=== PATIENT | male | born 2000 | race Caucasian/White ===

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

== ENCOUNTER 2018-02-24 14:00 | Emergency (ER) | payer OTHER ==
[~2018-02-24] VITALS: Wt 90.7 kg
[~2018-02-24 14:00] MED LIST changes: +OMEPRAZOLE20 M2 PO; +ZOFRAN ODT4 MG SL
[2018-02-24 14:01] VITALS: BP 122/77
[2018-02-24] MEDS ORDERED: ZYRTEC10 MG PO (14:22)
[2018-02-24] MEDS ORDERED: FLONASE ALLERG9.9 ML NAS (14:22)
[2018-02-24] MEDS ORDERED: PREDNISONE20 M1 PO (14:22)
[2018-02-24] MEDS ORDERED: ZITHROMAX500 MG PO (15:03)
== END 2018-02-24 15:07 | disposition home or self-care (01) ==
LOC: ED 14:00
DX: J02.0 Streptococcal pharyngitis (principal); F17.200 Nicotine dependence, unspecified, uncomplicated; Z88.0 Allergy status to penicillin; Z88.1 Allergy status to other antibiotic agents; Z79.899 Other long term (current) drug therapy

== ENCOUNTER 2018-04-26 16:05 | Emergency (ER) | payer OTHER ==
[~2018-04-26] VITALS: Ht 180.3 cm; Wt 108.9 kg
--- NOTE | ~2018-04-26 | EKG ---
[place], [place] ELECTROCARDIOGRAM REPORT NAME: ZANA ANDERSON UNIT #: [id number] ROOM: DOCTOR: EPIPHANY DRAFT REPORT BIRTHDATE: [birth year] [facility] [place] Test Date: 2018-04-26 Test Time: 16:16:48 Pat Name: ZANA ANDERSON Department: Room: Gender: Lead Material Handler: Emmett Hyatt : 2000 Requested By: KAYLA GARCIA DNP Order Number: [id number] Reading MD: Gianna Petit MD Measurements Intervals [place] Rate: 94 P: 35 [place]: 158 QRS: 28 QRSD: 98 T: 18 QT: 341 QTc: 427 Interpretive Statements Sinus rhythm Compared to ECG 12/11/2017 18:26:12 No significant changes Electronically Signed On 04-27-2018 9:50:15 PST by Gianna Petit MD CM:EKGRPT:ELECTROCARDIOGRAM REPORT 1616 0950 KAYLA GARCIA DNP EPIPHANY DRAFT REPORT KAYLA GARCIA DNP
[~2018-04-26 16:05] MED LIST changes: +FLONASE ALLERG9.9 ML NAS; +PREDNISONE20 M1 PO; +ZITHROMAX500 MG PO; +ZYRTEC10 MG PO
[2018-04-26 16:06] VITALS: BP 143/102
[2018-04-26 16:42] LABS: BASO % 0.4 % (0.0-1.0); EOS # 0.1 10*3/uL (0.0-0.4); EOS % 1.8 % (1.0-4.0); HEMATOCRIT 49.7 % (42.0-52.0); HEMOGLOBIN 16.6 g/dl (14.0-18.0); LYMPH # 1.6 10*3/uL (1.3-4.4); LYMPH % 21.7 % (27.0-41.0); MEAN CELL VOLUME 84.8 fl (80.0-94.0); MEAN CORPUSCULAR HGB 28.3 pg (27.0-31.0); MEAN CORPUSCULAR HGB CONC 33.4 g/dl (33.0-37.0); MEAN PLATELET VOLUME 10.5 fl (9.6-12.3); MONO # 0.5 10*3/uL (0.1-1.0); MONO % 6.8 % (3.0-9.0); NEUT # 5.1 10*3/uL (2.3-7.9); PLATELET COUNT AUTOMATED 223 10*3/uL (130-400); RED BLOOD COUNT 5.86 10*6/uL (4.50-5.90); RED CELL DISTRI WIDTH 12.8 % (0-14.5); WHITE BLOOD COUNT 7.4 10*3/uL (4.8-10.8)
[2018-04-26 16:57] LABS: ACT PARTIAL THROMBO TIME 22.6 SECONDS (20.8-31.5)
[2018-04-26 17:05] LABS: ALBUMIN 4.3 gm/dl (3.1-4.5); ALKALINE PHOSPHATASE 83 U/L (45-117); BUN 12 mg/dl (7-24); CHLORIDE 101 mmol/L (98-107); CREATININE 1.02 mg/dL (0.70-1.30); LIPASE 93 U/L (73-393); POTASSIUM 3.9 mmol/L (3.5-5.1); SGOT/AST 35 IU/L (3-35); SGPT/ALT 59 U/L (12-78); SODIUM 136 mmol/L (136-145); TOTAL PROTEIN 8.2 gm/dL (6.4-8.2)
[2018-04-26 17:14] LABS: TROPONIN I < 0.015 ng/ml (<0.045)
[2018-04-26 17:43] LABS: BILIRUBIN NEGATIVE (NEGATIVE); BLOOD NEGATIVE (NEGATIVE); COLOR YELLOW (YELLOW); GLUCOSE NEGATIVE (NEGATIVE); KETONE NEGATIVE (NEGATIVE); LEUKO ESTERASE NEGATIVE (NEGATIVE); NITRITE NEGATIVE (NEGATIVE); UROBILINOGEN 0.2 E.U./dl (0.2-1.0)
[2018-04-26 17:51] LABS: CLARITY CLOUDY (CLEAR)
== END 2018-04-26 17:37 | disposition home or self-care (01) ==
LOC: ED 16:05
PROVIDERS: Nurse Practitioner Family
DX: R07.89 Other chest pain (principal); R42 Dizziness and giddiness; R11.2 Nausea with vomiting, unspecified; F17.200 Nicotine dependence, unspecified, uncomplicated; Z88.0 Allergy status to penicillin; Z88.1 Allergy status to other antibiotic agents

== ENCOUNTER 2019-02-24 21:53 | Emergency (ER) | payer SELFPAY ==
[~2019-02-24] VITALS: Ht 180.3 cm; Wt 113.4 kg
[2019-02-24 21:56] VITALS: BP 127/84
[2019-02-24 23:54] LABS: BILIRUBIN 1+ (NEGATIVE); BLOOD NEGATIVE (NEGATIVE); CLARITY CLEAR (CLEAR); COLOR YELLOW (YELLOW); GLUCOSE NEGATIVE (NEGATIVE); KETONE NEGATIVE (NEGATIVE); LEUKO ESTERASE NEGATIVE (NEGATIVE); NITRITE NEGATIVE (NEGATIVE); SPECIFIC GRAVITY >= 1.030 (1.005-1.030)
[2019-02-24 23:59] LABS: BACTERIA 2+; EPITHELIAL CELLS 0-2; RBC 0-2 rbc/hpf (0-2)
[2019-02-25] MEDS ORDERED: ZOFRAN4 MG PO (00:13)
[2019-02-25] MEDS ORDERED: SEPTDS PO (00:13)
== END 2019-02-25 00:25 | disposition home or self-care (01) ==
LOC: ED 21:53
PROVIDERS: Nurse Practitioner Family
DX: J10.1 Influenza due to other identified influenza virus with other respiratory manifestations (principal); H66.93 Otitis media, unspecified, bilateral; F17.200 Nicotine dependence, unspecified, uncomplicated; Z88.0 Allergy status to penicillin; Z88.1 Allergy status to other antibiotic agents; Z79.899 Other long term (current) drug therapy

== ENCOUNTER 2019-06-12 14:14 | Emergency (ER) | payer OTHER ==
[~2019-06-12] VITALS: Ht 182.8 cm; Wt 113.4 kg
[~2019-06-12 14:14] MED LIST changes: +ZOFRAN4 MG PO
[2019-06-12 14:18] VITALS: BP 137/90
[2019-06-12] MEDS ORDERED: DOXYCYCLINE100 M3 PO (14:46)
[2019-06-12] MEDS ORDERED: NYSTATIN CREAM15 GM T (14:46)
== END 2019-06-12 14:59 | disposition home or self-care (01) ==
LOC: ED 14:14
DX: B35.9 Dermatophytosis, unspecified (principal); F41.9 Anxiety disorder, unspecified; Z88.8 Allergy status to other drugs, medicaments and biological substances; Z88.0 Allergy status to penicillin; Z88.2 Allergy status to sulfonamides

== ENCOUNTER 2021-06-25 14:26 | Emergency (ER) | payer OTHER ==
[~2021-06-25] VITALS: Wt 142.9 kg
[~2021-06-25 14:26] MED LIST changes: +DOXYCYCLINE100 M3 PO; +NYSTATIN CREAM15 GM T
[2021-06-25 14:32] VITALS: BP 150/95
[2021-06-25] MEDS ORDERED: PREDNISONE50 MG PO (14:47)
[2021-06-25] MEDS ORDERED: CYCLOBENZAPRINE10 MG PO (14:47)
== END 2021-06-25 14:54 | disposition home or self-care (01) ==
LOC: ED 14:26
DX: S39.012A Strain of muscle, fascia and tendon of lower back, initial encounter (principal); Z88.0 Allergy status to penicillin; Z88.1 Allergy status to other antibiotic agents; W20.8XXA Other cause of strike by thrown, projected or falling object, initial encounter; Y93.89 Activity, other specified; Y92.89 Other specified places as the place of occurrence of the external cause; Y99.8 Other external cause status

== ENCOUNTER 2021-07-11 11:49 | Emergency (ER) | payer OTHER ==
[~2021-07-11] VITALS: Wt 138.3 kg
[~2021-07-11 11:49] MED LIST changes: +CYCLOBENZAPRINE10 MG PO; +PREDNISONE50 MG PO
[2021-07-11 11:59] VITALS: BP 154/115
[2021-07-11 12:13] LABS: BILIRUBIN Negative (Negative); BLOOD 2+ (Negative); CLARITY Clear (Clear); COLOR Yellow (Yellow); GLUCOSE Negative (Negative); KETONE Negative (Negative); LEUKO ESTERASE Trace (Negative); NITRITE Negative (Negative); SPECIFIC GRAVITY 1.015 (1.001-1.030)
[2021-07-11 12:33] LABS: BACTERIA TRACE; RBC TNTC rbc/hpf (0-2)
[2021-07-11] MEDS ORDERED: FLOMAX0.4 MG PO (12:44)
[2021-07-11] MEDS ORDERED: NAPROXEN250 MG PO (12:44)
[2021-07-11] MEDS ORDERED: TYLENOL325 M1 PO (12:44)
[2021-07-11] MEDS ORDERED: REGLAN10 M1 PO (12:44)
== END 2021-07-11 12:48 | disposition home or self-care (01) ==
LOC: ED 11:49
PROVIDERS: Emergency Medicine
DX: N23 Unspecified renal colic (principal); Z88.1 Allergy status to other antibiotic agents; Z88.0 Allergy status to penicillin

== ENCOUNTER 2022-03-31 21:46 | Emergency (ER) | payer OTHER ==
[~2022-03-31] VITALS: Ht 182.8 cm; Wt 108.9 kg
[~2022-03-31 21:46] MED LIST changes: +FLOMAX0.4 MG PO; +NAPROXEN250 MG PO; +REGLAN10 M1 PO; +TYLENOL325 M1 PO
[2022-03-31 21:58] VITALS: BP 158/86
[2022-03-31] MEDS ORDERED: CLINDAMYCIN HC300 MG PO (22:49)
== END 2022-03-31 22:45 | disposition home or self-care (01) ==
LOC: ED 21:46
DX: K08.89 Other specified disorders of teeth and supporting structures (principal); J02.9 Acute pharyngitis, unspecified; Z88.1 Allergy status to other antibiotic agents; Z88.0 Allergy status to penicillin; Z88.2 Allergy status to sulfonamides; Z88.8 Allergy status to other drugs, medicaments and biological substances

== ENCOUNTER 2022-04-15 08:37 | Emergency (ER) | payer OTHER ==
[~2022-04-15] VITALS: Ht 182.8 cm; Wt 136.1 kg
[~2022-04-15 08:37] MED LIST changes: +CLINDAMYCIN HC300 MG PO
[2022-04-15 08:41] VITALS: BP 155/90
[2022-04-15] MEDS ORDERED: ONDANSETRON4 MG SL (08:59)
== END 2022-04-15 09:00 | disposition home or self-care (01) ==
LOC: ED 08:37
DX: B34.9 Viral infection, unspecified (principal); Z88.0 Allergy status to penicillin; Z88.1 Allergy status to other antibiotic agents

== ENCOUNTER 2022-07-12 20:53 | Emergency (ER) | payer OTHER ==
[~2022-07-12] VITALS: Ht 180.3 cm; Wt 133.8 kg
[~2022-07-12 20:53] MED LIST changes: +ONDANSETRON4 MG SL
[2022-07-12 21:20] VITALS: BP 137/92
[2022-07-12] MEDS ORDERED: DOCUSATE SODIU100 M3 PO (21:49)
[2022-07-12] MEDS ORDERED: ANUSOL HC30 GM PO (21:49)
== END 2022-07-12 21:56 | disposition home or self-care (01) ==
LOC: ED 20:53
DX: K64.9 Unspecified hemorrhoids (principal); F41.9 Anxiety disorder, unspecified; F90.9 Attention-deficit hyperactivity disorder, unspecified type; Z88.1 Allergy status to other antibiotic agents; Z88.0 Allergy status to penicillin; Z88.2 Allergy status to sulfonamides; Z88.8 Allergy status to other drugs, medicaments and biological substances

== ENCOUNTER 2022-09-27 18:48 | Emergency (ER) | payer OTHER ==
[~2022-09-27 18:48] MED LIST changes: +ANUSOL HC30 GM PO; +DOCUSATE SODIU100 M3 PO
== END 2022-09-27 23:39 | disposition left against medical advice (07) ==
LOC: ED 18:48
DX: M79.672 Pain in left foot (principal); M79.675 Pain in left toe(s); Z53.21 Procedure and treatment not carried out due to patient leaving prior to being seen by health care provider

== ENCOUNTER 2022-10-04 09:41 | Emergency (ER) | payer OTHER ==
[~2022-10-04] VITALS: Ht 180.3 cm; Wt 122.5 kg
[2022-10-04 09:45] VITALS: BP 109/78
[2022-10-04] MEDS ORDERED: PREDNISONE50 MG PO (11:52)
== END 2022-10-04 11:58 | disposition home or self-care (01) ==
LOC: ED 09:41
DX: S46.811A Strain of other muscles, fascia and tendons at shoulder and upper arm level, right arm, initial encounter (principal); F90.9 Attention-deficit hyperactivity disorder, unspecified type; F41.9 Anxiety disorder, unspecified; Z88.1 Allergy status to other antibiotic agents; Z88.0 Allergy status to penicillin; Z88.2 Allergy status to sulfonamides; Z88.8 Allergy status to other drugs, medicaments and biological substances; X50.0XXA Overexertion from strenuous movement or load, initial encounter; Y93.89 Activity, other specified; Y92.89 Other specified places as the place of occurrence of the external cause; Y99.0 Civilian activity done for income or pay

== ENCOUNTER 2022-10-21 14:40 | Emergency (ER) | payer OTHER ==
[2022-10-21 14:49] VITALS: BP 145/88
[2022-10-21] MEDS ORDERED: CLINDAMYCIN HC300 MG PO (15:12)
[2022-10-21] MEDS ORDERED: TERBINAFINE250 MG PO (15:12)
[2022-10-21] MEDS ORDERED: Nizoral 2%15 GM T (15:12)
== END 2022-10-21 15:29 | disposition home or self-care (01) ==
LOC: ED 14:40
DX: L03.115 Cellulitis of right lower limb (principal); B35.3 Tinea pedis; Z88.1 Allergy status to other antibiotic agents; Z88.0 Allergy status to penicillin; Z88.2 Allergy status to sulfonamides; Z79.899 Other long term (current) drug therapy; Z79.2 Long term (current) use of antibiotics

== ENCOUNTER 2023-07-01 11:34 | Emergency (ER) | payer OTHER ==
[~2023-07-01] VITALS: Ht 182.8 cm; Wt 129.3 kg
[~2023-07-01 11:34] MED LIST changes: +Nizoral 2%15 GM T; +TERBINAFINE250 MG PO
[2023-07-01 12:01] VITALS: BP 134/63
[2023-07-01] MEDS ORDERED: CLINDAMYCIN HC300 MG PO (12:09)
== END 2023-07-01 12:30 | disposition home or self-care (01) ==
LOC: ED 11:34
DX: K08.89 Other specified disorders of teeth and supporting structures (principal); F41.9 Anxiety disorder, unspecified; F90.9 Attention-deficit hyperactivity disorder, unspecified type; Z88.1 Allergy status to other antibiotic agents; Z88.0 Allergy status to penicillin; Z88.2 Allergy status to sulfonamides; Z88.8 Allergy status to other drugs, medicaments and biological substances

== ENCOUNTER 2023-09-07 11:22 | Emergency (ER) | payer OTHER ==
[~2023-09-07] VITALS: Ht 182.8 cm; Wt 136.1 kg
[2023-09-07 11:27] VITALS: BP 138/83
[2023-09-07] MEDS ORDERED: Ondansetron4 MG PO (11:48)
== END 2023-09-07 11:56 | disposition home or self-care (01) ==
LOC: ED 11:22
DX: R11.2 Nausea with vomiting, unspecified (principal); R10.9 Unspecified abdominal pain; F90.9 Attention-deficit hyperactivity disorder, unspecified type; F41.9 Anxiety disorder, unspecified; Z88.0 Allergy status to penicillin; Z88.1 Allergy status to other antibiotic agents; Z88.2 Allergy status to sulfonamides; Z88.8 Allergy status to other drugs, medicaments and biological substances

== ENCOUNTER 2023-10-04 09:36 | Emergency (ER) | payer OTHER ==
[~2023-10-04] VITALS: Ht 182.8 cm; Wt 127.0 kg
[~2023-10-04 09:36] MED LIST changes: +Ondansetron4 MG PO
[2023-10-04] MEDS ORDERED: Lidocaine Hydrochloride 30 ML VIAL IJ ONE (09:40)
[2023-10-04 09:46] VITALS: BP 144/95
[2023-10-04] MEDS ORDERED: CLINDAMYCIN HC300 MG PO (09:50)
== END 2023-10-04 10:44 | disposition home or self-care (01) ==
LOC: ED 09:36
DX: K04.7 Periapical abscess without sinus (principal); K02.9 Dental caries, unspecified; F90.9 Attention-deficit hyperactivity disorder, unspecified type; F41.9 Anxiety disorder, unspecified; F17.290 Nicotine dependence, other tobacco product, uncomplicated; Z88.1 Allergy status to other antibiotic agents; Z88.0 Allergy status to penicillin; Z88.2 Allergy status to sulfonamides; Z88.8 Allergy status to other drugs, medicaments and biological substances

== ENCOUNTER 2023-11-01 16:04 | Emergency (ER) | payer OTHER ==
[~2023-11-01] VITALS: Wt 136.1 kg
[2023-11-01 16:13] VITALS: BP 147/80
== END 2023-11-01 17:42 | disposition home or self-care (01) ==
LOC: ED 16:04
DX: J06.9 Acute upper respiratory infection, unspecified (principal); Z20.822 Contact with and (suspected) exposure to COVID-19; Z88.1 Allergy status to other antibiotic agents; Z88.0 Allergy status to penicillin; Z88.2 Allergy status to sulfonamides

== ENCOUNTER 2023-12-06 11:19 | Emergency (ER) | payer SELFPAY ==
[~2023-12-06] VITALS: Wt 136.1 kg
[2023-12-06 11:46] VITALS: BP 130/72
[2023-12-06] MEDS ORDERED: CLINDAMYCIN HC300 MG PO (11:46)
[2023-12-06] MEDS ORDERED: CLINDAMYCIN HCL 300 MG CAPSULE PO ONE (11:50)
== END 2023-12-06 12:00 | disposition home or self-care (01) ==
LOC: ED 11:19
DX: K04.7 Periapical abscess without sinus (principal); F41.9 Anxiety disorder, unspecified; F17.200 Nicotine dependence, unspecified, uncomplicated; Z88.1 Allergy status to other antibiotic agents; Z88.0 Allergy status to penicillin; Z88.2 Allergy status to sulfonamides

== ENCOUNTER 2024-05-12 02:42 | Emergency (ER) | payer SELFPAY ==
[~2024-05-12] VITALS: Ht 182.8 cm; Wt 136.1 kg
[2024-05-12 02:55] VITALS: BP 150/105
[2024-05-12] MEDS ORDERED: CLINDAMYCIN HCL 300 MG CAPSULE PO ONE (03:20)
[2024-05-12] MEDS ORDERED: traMADol Hydrochloride 50 MG TAB PO ONE (03:20)
[2024-05-12] MEDS ORDERED: MELOXICAM15 MG PO (03:24)
== END 2024-05-12 03:27 | disposition home or self-care (01) ==
LOC: ED 02:42
DX: K04.7 Periapical abscess without sinus (principal); K02.9 Dental caries, unspecified; R22.0 Localized swelling, mass and lump, head; F90.9 Attention-deficit hyperactivity disorder, unspecified type; F41.9 Anxiety disorder, unspecified; Z88.1 Allergy status to other antibiotic agents; Z88.0 Allergy status to penicillin; Z88.2 Allergy status to sulfonamides; Z88.8 Allergy status to other drugs, medicaments and biological substances

== ENCOUNTER 2024-06-30 12:33 | Emergency (ER) | payer SELFPAY ==
[~2024-06-30] VITALS: Ht 182.8 cm; Wt 136.1 kg
[~2024-06-30 12:33] MED LIST changes: +MELOXICAM15 MG PO
[2024-06-30 12:41] VITALS: BP 136/77
[2024-06-30] MEDS ORDERED: Acetaminophen/Oxycodone 5 MG/325 MG TABLET PO ONE (12:50)
[2024-06-30] MEDS ORDERED: CLINDAMYCIN HCL 300 MG CAPSULE PO ONE (12:50)
[2024-06-30] MEDS ORDERED: MELOXICAM15 MG PO (12:52)
[2024-06-30] MEDS ORDERED: CLINDAMYCIN HC300 MG PO (12:52)
== END 2024-06-30 13:03 | disposition home or self-care (01) ==
LOC: ED 12:33
DX: K04.7 Periapical abscess without sinus (principal); F17.290 Nicotine dependence, other tobacco product, uncomplicated; Z88.1 Allergy status to other antibiotic agents; Z88.0 Allergy status to penicillin; Z88.2 Allergy status to sulfonamides

== ENCOUNTER 2024-07-30 10:14 | Emergency (ER) | payer SELFPAY ==
[~2024-07-30] VITALS: Ht 182.8 cm; Wt 136.1 kg
[2024-07-30] MEDS ORDERED: CLINDAMYCIN HCL 300 MG CAPSULE PO ONE (10:30)
== END 2024-07-30 10:37 | disposition home or self-care (01) ==
LOC: ED 10:14
DX: K04.7 Periapical abscess without sinus (principal); K02.9 Dental caries, unspecified; F41.9 Anxiety disorder, unspecified; Z79.899 Other long term (current) drug therapy; Z88.0 Allergy status to penicillin; Z88.1 Allergy status to other antibiotic agents; Z88.2 Allergy status to sulfonamides; Z88.8 Allergy status to other drugs, medicaments and biological substances

== ENCOUNTER 2024-09-05 10:51 | Inpatient (IN) | payer SELFPAY ==
[~2024-09-05] VITALS: Ht 182.8 cm; Wt 117.0 kg
[2024-09-05 11:03] VITALS: BP 142/100
[2024-09-05] MEDS ORDERED: Ondansetron Hydrochloride 4 MG/2 ML VIAL IV ONE (11:20)
[2024-09-05] MEDS ORDERED: SODIUM CHLORIDE 0.9% 1,000 ML IV ONE ×3 (11:20→14:30)
[2024-09-05 11:39] LABS: BASO # 0.1 10*3/uL (0.0-0.1); BASO % 0.8 % (0.0-1.0); EOS # 0.3 10*3/uL (0.0-0.4); EOS % 2.0 % (1.0-4.0); MEAN CELL VOLUME 84.0 fl (80.0-94.0); MEAN CORPUSCULAR HGB 29.1 pg (27.0-31.0); MEAN PLATELET VOLUME 11.1 fl (9.6-12.3); MONO # 1.0 10*3/uL (0.1-1.0); MONO % 6.3 % (3.0-9.0); NEUT # 12.3 10*3/uL (2.3-7.9); NEUT % 74.8 % (47.0-73.0); NUCLEATED RED BLOOD CELL 0.0 % (0.0-0.0); NUCLEATED RED BLOOD CELL 0.0 10*3/uL (0.0-0.0); PLATELET COUNT AUTOMATED 261 10*3/uL (130-400); RED CELL DISTRI WIDTH 14.4 % (0-14.5)
[2024-09-05 12:01] LABS: BUN 10 mg/dl (9-23); SGPT/ALT 26 U/L (5-49)
[2024-09-05] MEDS ORDERED: ZESTRIL10 MG PO (12:34)
[2024-09-05] MEDS ORDERED: LOPRESSOR50 M1 PO (12:34)
[2024-09-05] MEDS ORDERED: OMEPRAZOLE40 MG PO (12:35)
[2024-09-05] MEDS ORDERED: LASIX40 MG PO (12:35)
[2024-09-05] MEDS ORDERED: OXYBUTYNIN5 MG PO (12:35)
[2024-09-05] MEDS ORDERED: IMDUR SA30 MG PO (12:36)
[2024-09-05] MEDS ORDERED: ACETAMINOPHEN500 M4 PO (12:36)
[2024-09-05] MEDS ORDERED: ASPIRIN ADULT L81 M1 PO (12:37)
[2024-09-05] MEDS ORDERED: ADVIL PM CAPLE1 EACH PO (12:37)
[2024-09-05] MEDS ORDERED: NEURONTIN100 MG PO (12:37)
[2024-09-05 12:41] LABS: VENOUS BLOOD GAS O2 SAT 89.2 % (60.0-85.0)
[2024-09-05 12:50] LABS: BILIRUBIN Negative (Negative); BLOOD Negative (Negative); CLARITY Clear (Clear); COLOR Yellow (Yellow); KETONE 4+ (Negative); LEUKO ESTERASE Negative (Negative); NITRITE Negative (Negative); PH 5.0 (4.5-8.0); SPECIFIC GRAVITY >= 1.030 (1.001-1.030); UROBILINOGEN 0.2 E.U./dl (0.0-1.0)
[2024-09-05] MEDS ORDERED: INSULIN REGULAR IN 0.9 % NACL 100 ML IV SCH ×2 (12:50→14:05)
[2024-09-05 13:18] LABS: BACTERIA 3+; EPITHELIAL CELLS 0-2; MUCOUS 1+; RBC 0-2 rbc/hpf (0-2); WBC 0-2 wbc/hpf (0-5)
[2024-09-05 13:29] VITALS: BP 169/98
[2024-09-05] MEDS ORDERED: BISACODYL 5 MG TAB PO PRN (13:35)
[2024-09-05] MEDS ORDERED: BISACODYL 10 MG SUPP R PRN (13:35)
[2024-09-05] MEDS ORDERED: ACETAMINOPHEN 325 MG TAB PO PRN (13:35)
[2024-09-05] MEDS ORDERED: ACETAMINOPHEN 650 MG SUPP R PRN (13:35)
[2024-09-05] MEDS ORDERED: Ondansetron Hydrochloride 4 MG/2 ML VIAL IV PRN (13:35)
[2024-09-05] MEDS ORDERED: POTASSIUM CHLORIDE 20 MEQ/100 ML BAG IV PRN (13:40)
[2024-09-05] MEDS ORDERED: POTASSIUM CHLORIDE 20 MEQ TAB PO PRN (13:40)
[2024-09-05 14:00] VITALS: BP 145/99
[2024-09-05 14:52] LABS: BUN 9 mg/dl (9-23)
[2024-09-05] MEDS ORDERED: Acetaminophen/Hydrocodone 5 MG/325 MG TABLET PO PRN (15:50)
[2024-09-05 16:00] VITALS: BP 117/70
[2024-09-05] MEDS ORDERED: Bacitracin Zinc 14 GM TUBE T SCH (18:00)
[2024-09-05 18:21] LABS: BUN 8 mg/dl (9-23)
[2024-09-05] MEDS ORDERED: DEXTROSE 5% SALINE 0.45% 1,000 ML IV SCH (19:10)
[2024-09-05 20:00] VITALS: BP 115/76
[2024-09-05 22:16] LABS: BUN 7 mg/dl (9-23)
[2024-09-05 23:56] VITALS: BP 126/91
[2024-09-06 02:36] LABS: BUN 7 mg/dl (9-23)
[2024-09-06 03:57] VITALS: BP 127/84
[2024-09-06 06:22] LABS: BUN 6 mg/dl (9-23)
[2024-09-06 06:30] LABS: BASO # 0.0 10*3/uL (0.0-0.1); BASO % 0.4 % (0.0-1.0); EOS # 0.2 10*3/uL (0.0-0.4); EOS % 2.3 % (1.0-4.0); MEAN CELL VOLUME 83.0 fl (80.0-94.0); MEAN CORPUSCULAR HGB 29.2 pg (27.0-31.0); MEAN PLATELET VOLUME 11.4 fl (9.6-12.3); MONO # 0.7 10*3/uL (0.1-1.0); MONO % 8.9 % (3.0-9.0); NEUT # 5.7 10*3/uL (2.3-7.9); NEUT % 74.0 % (47.0-73.0); NUCLEATED RED BLOOD CELL 0.0 % (0.0-0.0); NUCLEATED RED BLOOD CELL 0.0 10*3/uL (0.0-0.0); RED CELL DISTRI WIDTH 13.0 % (0-14.5)
[2024-09-06 06:31] LABS: PLATELET COUNT AUTOMATED 185 10*3/uL (130-400)
[2024-09-06] MEDS ORDERED: POTASSIUM CHLORIDE 20 MEQ TAB PO ONE (06:50)
[2024-09-06] MEDS ORDERED: Insulin Glargine, Recombinan 1 UNIT/0.01 ML SC ONE (06:50)
[2024-09-06 07:01] LABS: VITAMIN D, 25-HYDROXY 36.8 ng/mL (30-100)
[2024-09-06 07:54] LABS: BUN 6 mg/dl (9-23); FREE T4 1.26 ng/dl (0.89-1.76); LDL CHOLESTEROL 74 mg/dL (9-159); SGPT/ALT 16 U/L (5-49)
[2024-09-06 08:00] VITALS: BP 135/88
[2024-09-06] MEDS ORDERED: DEXTROSE 50% 25 GM/50 ML VIAL IV PRN (08:55)
[2024-09-06] MEDS ORDERED: Insulin Glargine, Recombinan 1 UNIT/0.01 ML SC SCH (08:55)
[2024-09-06] MEDS ORDERED: HYDROCORTISONE 1% 28 GM TUBE T PRN (10:40)
[2024-09-06] MEDS ORDERED: NOVOLOG FL100 UNIT/2 SC ×2 (10:48→11:52)
[2024-09-06] MEDS ORDERED: LANTUS SOL100 UNIT/1 SC ×2 (10:48→11:52)
[2024-09-06] MEDS ORDERED: INSULIN LISPRO 1 UNIT/0.01 ML SQ SCH (11:30)
[2024-09-06] MEDS ORDERED: INSULIN REGULAR, HUMAN 1 UNIT/0.01 ML ONE (12:28)
[2024-09-07] MEDS ORDERED: MUPIROCIN 15 GM TUBE T SCH (10:00)
== END 2024-09-06 13:53 | disposition home or self-care (01) | DRG 638 ==
LOC: ED 10:51 → ICCU 12:54 → EDHOLD 12:54 → ICCU 13:08
PROVIDERS: Nurse Practitioner Family; ADMIT Internal Medicine; ATTEND Internal Medicine
DX: E10.10 Type 1 diabetes mellitus with ketoacidosis without coma (principal); R65.10 Systemic inflammatory response syndrome (SIRS) of non-infectious origin without acute organ dysfunction; K76.0 Fatty (change of) liver, not elsewhere classified; F90.9 Attention-deficit hyperactivity disorder, unspecified type; E86.0 Dehydration; D72.828 Other elevated white blood cell count; F17.210 Nicotine dependence, cigarettes, uncomplicated; F41.9 Anxiety disorder, unspecified; Z88.0 Allergy status to penicillin; Z88.8 Allergy status to other drugs, medicaments and biological substances; Z91.09 Other allergy status, other than to drugs and biological substances; Z79.899 Other long term (current) drug therapy; Z79.01 Long term (current) use of anticoagulants; Z79.2 Long term (current) use of antibiotics; Z87.440 Personal history of urinary (tract) infections; Z83.3 Family history of diabetes mellitus; Z82.49 Family history of ischemic heart disease and other diseases of the circulatory system; Q78.8 Other specified osteochondrodysplasias

== ENCOUNTER 2024-09-08 10:03 | Inpatient (IN) | payer SELFPAY ==
[~2024-09-08] VITALS: Ht 182.8 cm; Wt 117.0 kg
[~2024-09-08 10:03] MED LIST changes: +ACETAMINOPHEN500 M4 PO; +ADVIL PM CAPLE1 EACH PO; +ASPIRIN ADULT L81 M1 PO; +IMDUR SA30 MG PO; +LANTUS SOL100 UNIT/1 SC; +LASIX40 MG PO; +LOPRESSOR50 M1 PO; +NEURONTIN100 MG PO; +NOVOLOG FL100 UNIT/2 SC; +OMEPRAZOLE40 MG PO; +OXYBUTYNIN5 MG PO; +ZESTRIL10 MG PO
[2024-09-08 10:19] VITALS: BP 154/96
[2024-09-08] MEDS ORDERED: SODIUM CHLORIDE 0.9% 1,000 ML IV ONE ×2 (10:40→14:15)
[2024-09-08] MEDS ORDERED: Ondansetron Hydrochloride 4 MG/2 ML VIAL IV ONE (10:40)
[2024-09-08 10:55] LABS: BASO # 0.1 10*3/uL (0.0-0.1); BASO % 0.7 % (0.0-1.0); EOS # 0.1 10*3/uL (0.0-0.4); EOS % 0.9 % (1.0-4.0); MEAN CELL VOLUME 86.2 fl (80.0-94.0); MEAN CORPUSCULAR HGB 28.8 pg (27.0-31.0); MEAN PLATELET VOLUME 10.6 fl (9.6-12.3); MONO # 1.0 10*3/uL (0.1-1.0); MONO % 9.3 % (3.0-9.0); NEUT # 8.2 10*3/uL (2.3-7.9); NEUT % 77.5 % (47.0-73.0); NUCLEATED RED BLOOD CELL 0.0 % (0.0-0.0); NUCLEATED RED BLOOD CELL 0.0 10*3/uL (0.0-0.0); PLATELET COUNT AUTOMATED 203 10*3/uL (130-400); RED CELL DISTRI WIDTH 13.6 % (0-14.5)
[2024-09-08 11:16] LABS: BUN 12 mg/dl (9-23); SGPT/ALT 13 U/L (5-49)
[2024-09-08 11:46] LABS: BILIRUBIN Negative (Negative); BLOOD 1+ (Negative); CLARITY Clear (Clear); COLOR Yellow (Yellow); KETONE 4+ (Negative); LEUKO ESTERASE Negative (Negative); NITRITE Negative (Negative); PH 5.5 (4.5-8.0); SPECIFIC GRAVITY 1.025 (1.001-1.030); UROBILINOGEN 1.0 E.U./dl (0.0-1.0)
[2024-09-08 12:00] VITALS: BP 132/91
[2024-09-08 12:02] LABS: FINE GRANULAR CAST 21-30
[2024-09-08 12:05] LABS: BACTERIA 2+; WBC 0-2 wbc/hpf (0-5)
[2024-09-08] MEDS ORDERED: INSULIN REGULAR, HUMAN 1 UNIT/0.01 ML IV ONE (12:05)
[2024-09-08] MEDS ORDERED: ACETAMINOPHEN 650 MG SUPP R PRN (14:10)
[2024-09-08] MEDS ORDERED: Ondansetron Hydrochloride 4 MG/2 ML VIAL IV PRN (14:10)
[2024-09-08] MEDS ORDERED: ACETAMINOPHEN 325 MG TAB PO PRN (14:10)
[2024-09-08] MEDS ORDERED: POTASSIUM CHLORIDE 20 MEQ TAB PO ONE (14:15)
[2024-09-08 14:20] VITALS: BP 155/98
[2024-09-08 14:31] LABS: BUN 10 mg/dl (9-23)
[2024-09-08] MEDS ORDERED: DEXTROSE 5% SALINE 0.9% 1,000 ML IV ONE (15:00)
[2024-09-08] MEDS ORDERED: INSULIN REGULAR IN 0.9 % NACL 100 ML IV SCH (15:00)
[2024-09-08] MEDS ORDERED: POTASSIUM CHLORIDE 20 MEQ TAB PO PRN (15:00)
[2024-09-08] MEDS ORDERED: POTASSIUM CHLORIDE 20 MEQ/100 ML BAG IV PRN (15:00)
[2024-09-08] MEDS ORDERED: SODIUM CHLORIDE 0.9% 1,000 ML IV SCH (15:10)
[2024-09-08 16:45] VITALS: BP 155/81
[2024-09-08] MEDS ORDERED: DEXTROSE 5% SALINE 0.45% 1,000 ML IV SCH (17:05)
[2024-09-08] MEDS ORDERED: Polyethylene Glycol 3350 17 GM PACKET PO PRN (17:50)
[2024-09-08] MEDS ORDERED: Acetaminophen/Hydrocodone 5 MG/325 MG TABLET PO PRN (17:50)
[2024-09-08 19:33] LABS: BUN 7 mg/dl (9-23)
[2024-09-08 20:00] VITALS: BP 141/94
[2024-09-08 23:10] LABS: BUN 6 mg/dl (9-23)
[2024-09-09] VITALS: BP 150/88
[2024-09-09 02:35] LABS: BUN 6 mg/dl (9-23)
[2024-09-09] MEDS ORDERED: POTASSIUM CHLORIDE IN WATER 100 ML IV SCH ×2 (03:00)
[2024-09-09] MEDS ORDERED: POTASSIUM CHLORIDE 20 MEQ TAB PO ONE ×5 (03:40→23:20)
[2024-09-09 04:00] VITALS: BP 146/86
[2024-09-09 06:27] LABS: BASO # 0.0 10*3/uL (0.0-0.1); BASO % 0.4 % (0.0-1.0); EOS # 0.3 10*3/uL (0.0-0.4); EOS % 3.4 % (1.0-4.0); MEAN CELL VOLUME 85.2 fl (80.0-94.0); MEAN CORPUSCULAR HGB 28.9 pg (27.0-31.0); MEAN PLATELET VOLUME 11.2 fl (9.6-12.3); MONO # 1.1 10*3/uL (0.1-1.0); MONO % 11.7 % (3.0-9.0); NEUT # 6.0 10*3/uL (2.3-7.9); NEUT % 65.7 % (47.0-73.0); NUCLEATED RED BLOOD CELL 0.0 % (0.0-0.0); NUCLEATED RED BLOOD CELL 0.0 10*3/uL (0.0-0.0); PLATELET COUNT AUTOMATED 205 10*3/uL (130-400); RED CELL DISTRI WIDTH 13.6 % (0-14.5)
[2024-09-09 06:56] LABS: BUN 6 mg/dl (9-23)
[2024-09-09 08:00] VITALS: BP 135/91
[2024-09-09 11:00] LABS: BUN 5 mg/dl (9-23)
[2024-09-09] MEDS ORDERED: Metoclopramide Hydrochloride 10 MG/2 ML VIAL IV SCH (11:00)
[2024-09-09 12:00] VITALS: BP 126/82
[2024-09-09 14:38] LABS: BUN < 5 mg/dl (9-23)
[2024-09-09 16:00] VITALS: BP 141/90
[2024-09-09 18:20] LABS: BUN < 5 mg/dl (9-23)
[2024-09-09 20:00] VITALS: BP 126/67
[2024-09-09] MEDS ORDERED: Insulin Glargine, Recombinan 1 UNIT/0.01 ML SC ONE (20:25)
[2024-09-09 22:17] LABS: BUN < 5 mg/dl (9-23)
[2024-09-09] MEDS ORDERED: DEXTROSE 50% 25 GM/50 ML VIAL IV PRN (23:20)
[2024-09-10] VITALS: BP 124/70
[2024-09-10] MEDS ORDERED: POTASSIUM CHLORIDE IN WATER 100 ML IV SCH
[2024-09-10 02:30] LABS: BUN < 5 mg/dl (9-23)
[2024-09-10 06:17] LABS: BASO # 0.1 10*3/uL (0.0-0.1); BASO % 0.6 % (0.0-1.0); EOS # 0.3 10*3/uL (0.0-0.4); EOS % 3.8 % (1.0-4.0); MEAN CELL VOLUME 83.4 fl (80.0-94.0); MEAN CORPUSCULAR HGB 28.7 pg (27.0-31.0); MEAN PLATELET VOLUME 10.4 fl (9.6-12.3); MONO # 0.8 10*3/uL (0.1-1.0); MONO % 8.8 % (3.0-9.0); NEUT # 5.8 10*3/uL (2.3-7.9); NEUT % 65.6 % (47.0-73.0); NUCLEATED RED BLOOD CELL 0.0 % (0.0-0.0); NUCLEATED RED BLOOD CELL 0.0 10*3/uL (0.0-0.0); PLATELET COUNT AUTOMATED 213 10*3/uL (130-400); RED CELL DISTRI WIDTH 13.3 % (0-14.5)
[2024-09-10 06:41] LABS: SGPT/ALT 10 U/L (5-49)
[2024-09-10 06:51] LABS: BUN < 5 mg/dl (9-23)
[2024-09-10] MEDS ORDERED: INSULIN LISPRO 1 UNIT/0.01 ML SQ SCH (07:30)
[2024-09-10 08:00] VITALS: BP 132/91
[2024-09-10] MEDS ORDERED: POTASSIUM CHLORIDE 20 MEQ TAB PO ONE ×3 (08:05→11:20)
[2024-09-10] MEDS ORDERED: DEXTROSE 5% SALINE 0.45% 1,000 ML IV SCH (08:15)
[2024-09-10] MEDS ORDERED: INSULIN REGULAR IN 0.9 % NACL 100 ML IV SCH (08:30)
[2024-09-10 10:43] LABS: BUN < 5 mg/dl (9-23)
[2024-09-10 12:00] VITALS: BP 145/92
[2024-09-10] MEDS ORDERED: POTASSIUM CHLORIDE 20 MEQ/100 ML BAG IV PRN (12:55)
[2024-09-10] MEDS ORDERED: POTASSIUM CHLORIDE 20 MEQ TAB PO PRN (12:55)
[2024-09-10 13:25] LABS: BUN < 5 mg/dl (9-23)
[2024-09-10 16:00] VITALS: BP 148/96
[2024-09-10 16:23] LABS: BUN < 5 mg/dl (9-23)
[2024-09-10 19:44] LABS: BUN < 5 mg/dl (9-23)
[2024-09-10 20:00] VITALS: BP 124/84
[2024-09-10 22:44] LABS: BUN < 5 mg/dl (9-23)
[2024-09-10] MEDS ORDERED: Insulin Glargine, Recombinan 1 UNIT/0.01 ML SC ONE (23:25)
[2024-09-11] VITALS: BP 128/76
[2024-09-11 02:55] LABS: BUN < 5 mg/dl (9-23)
[2024-09-11] MEDS ORDERED: DEXTROSE 10 % IN WATER 250 ML IV PRN (03:25)
[2024-09-11 04:00] VITALS: BP 122/64
[2024-09-11] MEDS ORDERED: POTASSIUM CHLORIDE IN WATER 100 ML IV SCH (04:00)
[2024-09-11 06:05] LABS: BASO # 0.1 10*3/uL (0.0-0.1); BASO % 0.8 % (0.0-1.0); EOS # 0.3 10*3/uL (0.0-0.4); EOS % 3.1 % (1.0-4.0); MEAN CELL VOLUME 82.7 fl (80.0-94.0); MEAN CORPUSCULAR HGB 29.0 pg (27.0-31.0); MEAN PLATELET VOLUME 10.9 fl (9.6-12.3); MONO # 0.7 10*3/uL (0.1-1.0); MONO % 7.7 % (3.0-9.0); NEUT # 5.7 10*3/uL (2.3-7.9); NEUT % 63.8 % (47.0-73.0); NUCLEATED RED BLOOD CELL 0.0 % (0.0-0.0); NUCLEATED RED BLOOD CELL 0.0 10*3/uL (0.0-0.0); PLATELET COUNT AUTOMATED 222 10*3/uL (130-400); RED CELL DISTRI WIDTH 13.3 % (0-14.5)
[2024-09-11 06:20] LABS: SGPT/ALT 13 U/L (5-49)
[2024-09-11 06:23] LABS: BUN < 5 mg/dl (9-23)
[2024-09-11] MEDS ORDERED: INSULIN LISPRO 1 UNIT/0.01 ML SQ SCH (07:30)
[2024-09-11] MEDS ORDERED: POTASSIUM CHLORIDE 20 MEQ TAB PO ONE (07:35)
[2024-09-11 08:00] VITALS: BP 129/84
[2024-09-11] MEDS ORDERED: Pantoprazole Sodium 20 MG TAB PO SCH (11:30)
[2024-09-11 12:00] VITALS: BP 129/97
[2024-09-11 14:23] LABS: BUN < 5 mg/dl (9-23)
[2024-09-11 16:00] VITALS: BP 138/85
[2024-09-11] MEDS ORDERED: INSULIN LISPRO 1 UNIT/0.01 ML SQ ONE (18:25)
[2024-09-11] MEDS ORDERED: Insulin Glargine, Recombinan 1 UNIT/0.01 ML SC SCH (19:30)
[2024-09-12] VITALS: BP 123/76
[2024-09-12 06:23] LABS: BASO # 0.1 10*3/uL (0.0-0.1); BASO % 0.6 % (0.0-1.0); EOS # 0.3 10*3/uL (0.0-0.4); EOS % 3.0 % (1.0-4.0); MEAN CELL VOLUME 82.8 fl (80.0-94.0); MEAN CORPUSCULAR HGB 29.1 pg (27.0-31.0); MEAN PLATELET VOLUME 10.3 fl (9.6-12.3); MONO # 0.8 10*3/uL (0.1-1.0); MONO % 9.1 % (3.0-9.0); NEUT # 5.1 10*3/uL (2.3-7.9); NEUT % 58.0 % (47.0-73.0); NUCLEATED RED BLOOD CELL 0.0 % (0.0-0.0); NUCLEATED RED BLOOD CELL 0.0 10*3/uL (0.0-0.0); PLATELET COUNT AUTOMATED 228 10*3/uL (130-400); RED CELL DISTRI WIDTH 13.3 % (0-14.5)
[2024-09-12 06:48] LABS: BUN 5 mg/dl (9-23)
[2024-09-12] MEDS ORDERED: POTASSIUM CHLORIDE 20 MEQ TAB PO ONE (07:15)
[2024-09-12] MEDS ORDERED: Pantoprazole Sodium 20 MG TAB PO SCH (07:30)
[2024-09-12 08:00] VITALS: BP 138/86
[2024-09-12 12:00] VITALS: BP 140/60
[2024-09-12] MEDS ORDERED: POTASSIUM CHLORIDE 20 MEQ TAB PO SCH (12:00)
[2024-09-12 13:38] LABS: BILIRUBIN Negative (Negative); BLOOD Negative (Negative); CLARITY Clear (Clear); COLOR Yellow (Yellow); KETONE 2+ (Negative); LEUKO ESTERASE Negative (Negative); NITRITE Negative (Negative); PH 7.0 (4.5-8.0); SPECIFIC GRAVITY >= 1.030 (1.001-1.030); UROBILINOGEN 2.0 E.U./dl (0.0-1.0)
[2024-09-12 13:53] LABS: BACTERIA TRACE; EPITHELIAL CELLS 0-2; RBC 0-2 rbc/hpf (0-2); WBC 0-2 wbc/hpf (0-5)
[2024-09-12] MEDS ORDERED: LANTUS SOL100 UNIT/1 SC (13:56)
[2024-09-12] MEDS ORDERED: REGLAN5 MG PO (13:56)
[2024-09-12] MEDS ORDERED: OMEPRAZOLE40 MG PO (13:56)
[2024-09-12 14:44] LABS: BUN 7 mg/dl (9-23)
[2024-09-12 15:46] LABS: VENOUS BLOOD GAS O2 SAT 80.8 % (60.0-85.0)
[2024-09-12] MEDS ORDERED: DULCOLAX5 M1 PO (15:56)
[2024-09-12] MEDS ORDERED: Insulin Glargine, Recombinan 1 UNIT/0.01 ML SC SCH (22:00)
== END 2024-09-12 17:00 | disposition home or self-care (01) | DRG 638 ==
LOC: ED 10:03 → ICCU 12:24 → EDHOLD 12:24 → ICCU 16:14 → 5E 09-11 16:47
PROVIDERS: Internal Medicine; Registered Nurse; Student in an Organized Health Care Education/Training Program; ADMIT Family Medicine; ATTEND Family Medicine
DX: E11.10 Type 2 diabetes mellitus with ketoacidosis without coma (principal); N30.01 Acute cystitis with hematuria; R65.10 Systemic inflammatory response syndrome (SIRS) of non-infectious origin without acute organ dysfunction; F41.9 Anxiety disorder, unspecified; F17.210 Nicotine dependence, cigarettes, uncomplicated; E11.43 Type 2 diabetes mellitus with diabetic autonomic (poly)neuropathy; K31.84 Gastroparesis; E87.6 Hypokalemia; K76.0 Fatty (change of) liver, not elsewhere classified; Z88.0 Allergy status to penicillin; Q78.8 Other specified osteochondrodysplasias; Z88.8 Allergy status to other drugs, medicaments and biological substances; Z91.09 Other allergy status, other than to drugs and biological substances; Z79.899 Other long term (current) drug therapy; Z79.01 Long term (current) use of anticoagulants; Z79.2 Long term (current) use of antibiotics; Z83.3 Family history of diabetes mellitus; Z82.49 Family history of ischemic heart disease and other diseases of the circulatory system; Z84.89 Family history of other specified conditions

== ENCOUNTER 2024-11-04 10:50 | Emergency (ER) | payer MEDICAID ==
[~2024-11-04] VITALS: Ht 182.8 cm; Wt 124.7 kg
[~2024-11-04 10:50] MED LIST changes: +DULCOLAX5 M1 PO; +REGLAN5 MG PO
[2024-11-04 11:08] VITALS: BP 131/88
[2024-11-04] MEDS ORDERED: CLINDAMYCIN HCL 300 MG CAPSULE PO ONE (11:25)
== END 2024-11-04 11:26 | disposition home or self-care (01) ==
LOC: ED 10:50
DX: K04.7 Periapical abscess without sinus (principal); K03.81 Cracked tooth; E11.9 Type 2 diabetes mellitus without complications; F41.9 Anxiety disorder, unspecified; F17.200 Nicotine dependence, unspecified, uncomplicated; Z88.1 Allergy status to other antibiotic agents; Z88.0 Allergy status to penicillin; Z88.2 Allergy status to sulfonamides; Z79.4 Long term (current) use of insulin; Z79.899 Other long term (current) drug therapy

== ENCOUNTER 2024-11-28 11:53 | Emergency (ER) | payer MEDICAID ==
[~2024-11-28] VITALS: Ht 182.8 cm; Wt 127.0 kg
[2024-11-28 12:18] VITALS: BP 126/79
[2024-11-28] MEDS ORDERED: OMNICEF300 MG PO (12:34)
== END 2024-11-28 12:56 | disposition home or self-care (01) ==
LOC: ED 11:53
DX: J06.9 Acute upper respiratory infection, unspecified (principal); H66.92 Otitis media, unspecified, left ear; H92.01 Otalgia, right ear; F17.200 Nicotine dependence, unspecified, uncomplicated; Z88.1 Allergy status to other antibiotic agents; Z88.0 Allergy status to penicillin; Z88.2 Allergy status to sulfonamides; Z79.4 Long term (current) use of insulin